=== PATIENT | male | born 1950 | race Caucasian/White ===

== ENCOUNTER 2016-11-07 09:20 | Emergency (ER) | payer OTHER ==
[~2016-11-07] VITALS: Ht 172.7 cm; Wt 65.8 kg
[~2016-11-07 09:20] MED LIST: ACETAMINOPHEN500 MG PO; CYMBALTA60 MG PO; ENDOCET 325 MG-1 TA1 PO; FLEXERIL10 MG PO; HYDRODIURIL 2525 MG PO; IBUPROFEN800 M1 PO; LIORESAL 10MG T10 MG PO; MEDROL DOSEPAK1 PAC PO; MEDROL4 MG PO; METFORMIN HCL500 M3 PO; METFORMIN HYDR500 MG PO; METHENAMINE HIPP1 GM PO; METOPROLOL TART50 MG PO; PERCOCET 325 MG1 TA2 PO; PERCOCET 5-3251 EACH PO; ROBAXIN500 M1 PO; SKELAXIN800 M1 PO; TRAZODONE HCL50 M1 PO; VICODIN 300 MG-1 TAB PO
--- NOTE | 2016-11-07 11:15 | ED NECK/BACK PAIN COMPLAINT ---
History of Present Illness General Chief Complaint: Low Back Pain/Injury Stated Complaint: fall yesterday/lbp Source: patient Exam Limitations: no limitations Vital Signs & Intake/Output Vital Signs & Intake/Output Vital Signs Date Time Temp Pulse Resp B/P Pulse O2 O2 Flow FiO2 Ox Delivery Rate 11/07 0954 98.7 74 20 127/84 95 Room Air Allergies Coded Allergies: Iodinated Contrast Media - Oral and (Severe, DIFFICULTY BREATHING, PRESSURE TO THE EYES 11/07/16) gabapentin (Severe, DIZZY, BLURRED VISION 11/07/16) naproxen (Severe, VOMIT BLOOD 11/07/16) tramadol (Severe, MUSCLE SPASMS 11/07/16) Reconcile Medications Acetaminophen 500 MG CAP 1-2 TAB PO Q6P PRN pain DULOXETINE HCL (Cymbalta) 60 MG CAPSULE.DR 1 CAP PO DAILY PAIN (Reported) Hydrochlorothiazide (Hydrodiuril 25 MG Tab) 25 MG TABLET 1 TAB PO DAILY BP ( Reported) Ibuprofen 800 MG TABLET 800 MG PO Q6H PRN PAIN/INFLAMMATION (Reported) Metaxalone (Skelaxin) 800 MG TABLET 1 TAB PO TID PRN muscle relaxant Metformin HCl 500 MG TABLET 500 MG PO DAILY DIABETES (Reported) Methenamine Hippurate 1 GRAM TABLET 1 TAB PO BID BLADDER (Reported) Methocarbamol (Robaxin) 500 MG TABLET 1 TAB PO TID PRN MUSCLE SPASMS Methylprednisolone. (Medrol) 4 MG TAB.DS.PK 1 DP PO AD back pain 6 on day 1 then reduce by one tablet daily until gone Metoprolol Tartrate 50 MG TABLET 1 TAB PO DAILY BP (Reported) Oxycodone HCl/Acetaminophen (Percocet 5-325 MG Tablet) 5 MG-325 MG TABLET 1 TAB PO Q6HR PRN pain Triage Note: TRIAGE: PT TO ER C/C L LOW BACK PAIN S/P FALL LAST NIGHT. STATES TRIPPED OVER DOG AND FELL DOWN APPROX 8 STEPS. TRIED IBUPROFEN 800 MG AND ROBAXIN WITH NO RELIEF. Triage Nurses Notes Reviewed? yes Onset: Abrupt Duration: day(s): (1) Timing: remote history Quality/Severity: moderate Location: lumbar spine Radiation: none Context: fall/near fall Method of Injury: fall Loss of Consciousness: no loss of consciousness HPI: Patient is a 66-year-old male presenting to the emergency Department chief complaint low back pain after falling down 4-5 steps last night. He reports that he slipped and fell and landed directly on his back and slid down 4-5 steps. No head injury. No loss of consciousness. Pain is achy throbbing intermittently sharp and stabbing. Denies radiation of the pain. Denies any urinary incontinence or retention. Has been taking ibuprofen without relief. Denies any neck pain. No weakness. Positive history of surgery approximately 10 years ago in the low back. He had a discectomy. Past History Travel History Traveled to [place] past 21 day No Medical History Any Pertinent Medical History? 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 No Review of Systems Review of Systems Constitutional: Reports: no symptoms. Comments Review of systems: See HPI, All other systems negative. Constitutional, no chills fever or weight loss HEENT: No visual changes no sore throat no congestion Cardiovascular: No chest pain ,palpitation , orthopnea or ankle swelling Skin, no jaundice no rashes Respiratory: No dyspnea cough sputum or hemoptysis GI: No nausea no vomiting : No dysuria No hematuria Muscle skeletal: no neck pain, Neurologic: No numbness no confusion Psych: No stress anxiety or depression,. Heme/endocrine: No bruising no bleeding no polyuria or polydipsia Immunology: No splenectomy or history of AIDS Physical Exam Physical Exam General Appearance: well developed/nourished, no apparent distress, alert, awake , comfortable Neck: normal inspection, supple, full range of motion, normal alignment Comments: Well-developed well-nourished person in no acute distress HEENT: Pupils equally round and reactive to light and accommodation. Nose is atraumatic. Neck: Supple, no lymphadenopathy, normal range of motion without pain or tenderness on a C-spine tenderness. Back: Palpation over L4, L5, alt [place] surgical scar noted. No ecchymosis or erythema or edema. Limited range of motion with forward flexion and back extension secondary to pain. Negative modified straight leg raise bilaterally. Cardiovascular: Regular rate and rhythms no murmurs rubs or gallops, normal JVP . Respiratory: Chest nontender. No respiratory distress.breath sounds clear to auscultation bilaterally Extremity: No edema, muscular strength is 5 out of 5 in all extremities well- seated. Independent Contractor strength is equal and symmetric bilaterally. Neuro: Alert oriented x3, motor sensory normal, patellar reflexes are 2+ bilaterally. Skin: No appreciable rash on exposed skin, skin is warm and dry. Psych: Mood and affect is normal, memory and judgment is normal. Progress Differential Diagnosis: cauda equina syn, herniated disc, myofascial strain, T/L spine injury Plan of Care: Orders Procedure Date/time Status XRY-LUMBOSACRAL SPINE 4 VIEWS 11/07 1114 Active Diagnostic Imaging: Viewed by Me: Radiology Read. Discussed w/RAD: Radiology Read. Radiology Impression: PATIENT: THANH CALLOWAY PRESENT AGE: 66 PATIENT ACCOUNT NO: [id number] : 52 LOCATION: [facility] ORDERING PHYSICIAN: JUAN CURTIS SERVICE DATE: 11/07/16 EXAM TYPE: RAD - XRY-LUMBOSACRAL SPINE 4 VIEWS EXAMINATION: XR LUMBOSACRAL SPINE CLINICAL INFORMATION: Pain after fall COMPARISON: None TECHNIQUE: 4 views of the lumbosacral spine. FINDINGS: Alignment of the lumbar vertebral bodies and posterior elements appears anatomic. Vertebral body heights are maintained. No acute fracture is seen. There is essentially complete loss of the L3-L4 disc space. There is moderate disc space narrowing at L4-L5 with vacuum disc phenomena. There is suspected sacralization of L5. Multilevel endplate osteophytes are present, most prominently in the lower lumbar spine. The sacroiliac joints are intact. IMPRESSION: No definite acute findings identified, though assessment of the lower lumbar spine is suboptimal due to degenerative change. Comments: 11/07/2016 11:31:07 AM arrival patient requesting pain medication. Given one by mouth Percocet for pain. He will go for x-ray to rule out fracture. 11/07/2016 11:52:11 AM patient informed of negative x-ray. He will take Percocet and Medrol Dosepak. He will follow up with PCP or return for worsening symptoms. Patient nontoxic. No signs of cauda equina. Departure Departure Time of Disposition: 1131 Disposition: HOME OR SELF CARE Condition: Stable Clinical Impression Primary Impression: Back pain Referrals: UNKNOWN (PCP/Family) Additional Instructions: Follow-up with your primary care physician call to make An appointment. Take Percocet and Medrol Dosepak as prescribed. Avoid heavy lifting 7 movements. Departure Forms: Customer Survey General Discharge Information Prescriptions: Current Visit Scripts Oxycodone HCl/Acetaminophen (Percocet 5-325 MG Tablet) 1 TAB PO Q6HR PRN pain #10 TAB Methylprednisolone. (Medrol) 1 DP PO AD #1 DP 6 on day 1 then reduce by one tablet daily until gone
[2016-11-07] MEDS ORDERED: PERCOCET 5-3251 EACH PO (11:33)
[2016-11-07] MEDS ORDERED: MEDROL4 M2 PO (11:33)
--- NOTE | 2016-11-07 11:44 | RADIOLOGY REPORT ---
EXAMINATION: XR LUMBOSACRAL SPINE CLINICAL INFORMATION: Pain after fall COMPARISON: None TECHNIQUE: 4 views of the lumbosacral spine. FINDINGS: Alignment of the lumbar vertebral bodies and posterior elements appears anatomic. Vertebral body heights are maintained. No acute fracture is seen. There is essentially complete loss of the L3-L4 disc space. There is moderate disc space narrowing at L4-L5 with vacuum disc phenomena. There is suspected sacralization of L5. Multilevel endplate osteophytes are present, most prominently in the lower lumbar spine. The sacroiliac joints are intact. IMPRESSION: No definite acute findings identified, though assessment of the lower lumbar spine is suboptimal due to degenerative change.
[2016-11-07 11:52] VITALS: BP 125/82
== END 2016-11-07 12:10 ==
LOC: ERH 09:20
DX: M54.5 Low back pain (principal)
CPT/HCPCS: 72110

== ENCOUNTER 2016-12-12 09:39 | Emergency (ER) | payer OTHER ==
[~2016-12-12] VITALS: Ht 172.7 cm; Wt 65.8 kg
[~2016-12-12 09:39] MED LIST changes: +MEDROL4 M2 PO
[2016-12-12 09:43] VITALS: BP 135/87
--- NOTE | 2016-12-12 09:55 | ED NECK/BACK PAIN COMPLAINT ---
History of Present Illness General Chief Complaint: Low Back Pain/Injury Stated Complaint: LOWER BACK PAIN Source: patient, old records Exam Limitations: no limitations Vital Signs & Intake/Output Vital Signs & Intake/Output Vital Signs Date Time Temp Pulse Resp B/P Pulse O2 O2 Flow FiO2 Ox Delivery Rate 12/12 0943 96.1 62 18 135/87 99 Room Air Allergies Coded Allergies: Iodinated Contrast Media - Oral and (Severe, DIFFICULTY BREATHING, PRESSURE TO THE EYES 11/07/16) gabapentin (Severe, DIZZY, BLURRED VISION 11/07/16) naproxen (Severe, VOMIT BLOOD 11/07/16) tramadol (Severe, MUSCLE SPASMS 11/07/16) Reconcile Medications Acetaminophen 500 MG CAP 1-2 TAB PO Q6P PRN pain DULOXETINE HCL (Cymbalta) 60 MG CAPSULE.DR 1 CAP PO DAILY PAIN (Reported) Hydrochlorothiazide (Hydrodiuril 25 MG Tab) 25 MG TABLET 1 TAB PO DAILY BP ( Reported) Ibuprofen 800 MG TABLET 800 MG PO Q6H PRN PAIN/INFLAMMATION (Reported) Metaxalone (Skelaxin) 800 MG TABLET 1 TAB PO TID PRN muscle relaxant Metformin HCl 500 MG TABLET 500 MG PO DAILY DIABETES (Reported) Methenamine Hippurate 1 GRAM TABLET 1 TAB PO BID BLADDER (Reported) Methocarbamol (Robaxin) 500 MG TABLET 1 TAB PO TID PRN MUSCLE SPASMS Methylprednisolone. (Medrol) 4 MG TAB.DS.PK 1 DP PO AD radiculopathy 6 on day 1 then reduce by one tablet daily until gone Methylprednisolone. (Medrol) 4 MG TAB.DS.PK 1 DP PO AD back pain 6 on day 1 then reduce by one tablet daily until gone Metoprolol Tartrate 50 MG TABLET 1 TAB PO DAILY BP (Reported) Oxycodone HCl/Acetaminophen (Percocet 5-325 MG Tablet) 5 MG-325 MG TABLET 1 TAB PO BID PRN pain Oxycodone HCl/Acetaminophen (Percocet 5-325 MG Tablet) 5 MG-325 MG TABLET 1 TAB PO Q6HR PRN pain Triage Note: 66 Y/O MALE C/O LOW BACK PAIN - HISTORY OF SAME. STATES HE TOOK IBUPROPHEN THIS AM WITH NO RELIEF, 800MG. ALSO TOOK 750MG ROBAXIN WITH NO RELIEF. Triage Nurses Notes Reviewed? yes Onset: Gradual Duration: day(s): (1), constant Timing: recent history Quality/Severity: moderate (ACHING) Location: paraspinous muscles Radiation: buttocks Context: lifting Method of Injury: LIFTING Modifying Factors: movement, pain medication, rest Associated Symptoms: denies HPI: 66-year-old male with history of 2 prior back surgeries chronic back pain presents to emergency room complaining of exacerbation of his chronic pain left worse than right since last night when he states he was worsening around and lifting his grandson. There is been no recent fall or trauma. He's been taking his Robaxin and ibuprofen without improvement. He states the pain radiates into his buttocks. He denies any abdominal pain urinary or bowel incontinence no fever no chills no abdominal pain or leg pain numbness tingling. he States when he has had this pain before that Percocet will help with his pain as does methylprednisolone (JOVANNY BLANCO) Past History Travel History Traveled to [place] past 21 day No Medical History Any Pertinent Medical History? 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 No (JOVANNY BLANCO) Review of Systems Review of Systems Constitutional: Reports: see HPI. All Other Systems: Reviewed and Negative Comments Review of systems: See HPI, All other systems negative. Constitutional, no chills no fever, no malaise HEENT: No visual changes no sore throat no congestion Cardiovascular: No chest pain , no palpitation , no orthopnea Skin, no rashes, no change in skin Respiratory: No dyspnea no cough no sputum GI: No nausea no vomiting, no diarrhea : No dysuria Muscle skeletal: No joint pain, , no back pain, no neck pain, Neurologic: No numbness no headache Psych: No stress Heme/endocrine: No bruising no bleeding Immunology: No lymphadenopathy (JOVANNY BLANCO) Physical Exam Physical Exam General Appearance: well developed/nourished, alert, awake, comfortable Neck: normal inspection, supple, full range of motion Comments: Well-developed well-nourished person in no acute distress HEENT: Normal EENT exam; PERRL, EOMI. HEAD is atraumatic. moist mucous membranes. Neck: Supple, normal range of motion Back: There is bilateral paralumbar muscle tenderness palpation of midline tenderness no ecchymosis or signs of trauma no CVA tenderness. Full range of motion Cardiovascular: Regular rate and rhythms no murmurs rubs Respiratory: No respiratory distress. Patient speaking in full complete sentences. Breath sounds clear to auscultation bilaterally: NO W/R/R Abdomen: Soft, nontender nondistended. Extremity: No edema, full range of motion of extremities, neg slr b/l Neuro: Alert oriented x3, motor sensory normal, Skin: No appreciable rash on exposed skin, skin is warm and dry. Psych: Mood and affect is normal, memory and judgment is normal. (JOVANNY BLANCO) Progress Differential Diagnosis: cauda equina syn, herniated disc, myofascial strain, pyelo/UTI, spinal cord inj, T/L spine injury, ureterolithiasis Plan of Care: pt has been seen numerous times int he past for the same, imaging at the time unremarkable. pt amb with steady gait. Patient clinically looks well. Patient has no evidence of radiculopathy. No urinary bowel dysfunction. No numbness in the genital area. Strength intact. Gross sensation intact. Patient resting comfortably and in no apparent distress. Pain is worse with range of motion. Pain is reproducible IN back with no bruising or ecchymosis noted. . Patient is to follow-up with primary care doctor. May need MRI of the lower back at some point time. No concerns for cauda equina at this point time. I considered this diagnosis but patient does not have any symptoms consistent with cauda equina. Patient has no secondary causes of back pain. No cardiac, pulmonary, or abdominal complaints. No abdominal pain on exam. Cardiac pulmonary exam within normal limits. No rashes, afebrile, denies recent weight loss, dizziness, lightheadedness (JOAVNNY BLANCO) Departure Departure Time of Disposition: 1001 Disposition: HOME OR SELF CARE Condition: Stable Clinical Impression Primary Impression: Lumbar radiculopathy Referrals: UNKNOWN (PCP/Family) Additional Instructions: follow up with your pmd next week. rest,interchange ice and heat. percocet for breakthrough pain- use caution as this will make you drowys-no driving or drinking alcohol while taking. medrol dose florina as directed. return to the ER with any concerns these prescriptions were sent to the [facility]. Departure Forms: Customer Survey General Discharge Information Prescriptions: Current Visit Scripts Oxycodone HCl/Acetaminophen (Percocet 5-325 MG Tablet) 1 TAB PO BID PRN pain #10 TAB Methylprednisolone. (Medrol) 1 DP PO AD #1 DP 6 on day 1 then reduce by one tablet daily until gone (JOVANNY BLANCO) PA/INSTRUCTIONAL PARAPROFESSIONAL Co-Sign Statement Statement: ED Attending supervision documentation- [] I saw and evaluated the patient. I have also reviewed all the pertinent lab results and diagnostic results. I agree with the findings and the plan of care as documented in the PA's/INSTRUCTIONAL PARAPROFESSIONAL's documentation. [X] I have reviewed the ED Record and agree with the PA's/INSTRUCTIONAL PARAPROFESSIONAL's documentation. [] Additions or exceptions (if any) to the PAs/INSTRUCTIONAL PARAPROFESSIONAL's note and plan are summarized below: [] (AMY JOLLY,SONAM)
[2016-12-12] MEDS ORDERED: MEDROL4 M2 PO (10:02)
[2016-12-12] MEDS ORDERED: PERCOCET 5-3251 EACH PO (10:02)
== END 2016-12-12 10:10 ==
LOC: ERH 09:39
DX: M54.16 Radiculopathy, lumbar region (principal)

== ENCOUNTER 2017-02-14 09:48 | Emergency (ER) | payer OTHER ==
[~2017-02-14] VITALS: Ht 172.7 cm; Wt 65.8 kg
[2017-02-14 10:00] VITALS: BP 120/79
--- NOTE | 2017-02-14 11:07 | ED NECK/BACK PAIN COMPLAINT ---
History of Present Illness General Chief Complaint: Low Back Pain/Injury Stated Complaint: LBP Source: patient Exam Limitations: no limitations Vital Signs & Intake/Output Vital Signs & Intake/Output Vital Signs Date Time Temp Pulse Resp B/P B/P Pulse O2 O2 Flow FiO2 Mean Ox Delivery Rate 02/14 1000 97.1 69 18 120/79 96 Room Air Room Air Allergies Coded Allergies: Iodinated Contrast Media - Oral and (Severe, DIFFICULTY BREATHING, PRESSURE TO THE EYES 11/07/16) gabapentin (Severe, DIZZY, BLURRED VISION 11/07/16) naproxen (Severe, VOMIT BLOOD 11/07/16) tramadol (Severe, MUSCLE SPASMS 11/07/16) Reconcile Medications Acetaminophen 500 MG CAP 1-2 TAB PO Q6P PRN pain DULOXETINE HCL (Cymbalta) 60 MG CAPSULE.DR 1 CAP PO DAILY PAIN (Reported) Hydrochlorothiazide (Hydrodiuril 25 MG Tab) 25 MG TABLET 1 TAB PO DAILY BP ( Reported) Ibuprofen 800 MG TABLET 800 MG PO Q6H PRN PAIN/INFLAMMATION (Reported) Metaxalone (Skelaxin) 800 MG TABLET 1 TAB PO TID PRN muscle relaxant Metformin HCl 500 MG TABLET 500 MG PO DAILY DIABETES (Reported) Methenamine Hippurate 1 GRAM TABLET 1 TAB PO BID BLADDER (Reported) Methocarbamol (Robaxin) 500 MG TABLET 1 TAB PO TID PRN MUSCLE SPASMS Methylprednisolone. (Medrol) 4 MG TAB.DS.PK 1 DP PO AD radiculopathy 6 on day 1 then reduce by one tablet daily until gone Methylprednisolone. (Medrol) 4 MG TAB.DS.PK 1 DP PO AD back pain 6 on day 1 then reduce by one tablet daily until gone Methylprednisolone. (Medrol) 4 MG TAB.DS.PK 1 DP PO AD BACK PAIN 6 on day 1 then reduce by one tablet daily until gone Metoprolol Tartrate 50 MG TABLET 1 TAB PO DAILY BP (Reported) Oxycodone HCl/Acetaminophen (Percocet 5-325 MG Tablet) 5 MG-325 MG TABLET 1 TAB PO BID PRN pain Oxycodone HCl/Acetaminophen (Percocet 5-325 MG Tablet) 5 MG-325 MG TABLET 1 TAB PO Q6HR PRN pain Oxycodone HCl/Acetaminophen (Percocet 5-325 MG Tablet) 5 MG-325 MG TABLET 1 TAB PO BID PRN PAIN Triage Note: TRIAGE: 66 Y/O MALE PRESENTS C/O 6-04/20 CHRONIC LOWER BACK PAIN "FOR A WHILE NOW. I'VE HAD 2 SURGERIES." OFFERED TYLENOL OR MOTRIN IN TRIAGE. PATIENT DECLINED, "I TOOK MOTRIN ALREADY." WHEN SKIDDER REQUESTED PATIENT TO REMOVE SWEATSHIRT FOR ACCURATE VITAL SIGNS MONITORING, PATIENT DECLINED STATING, "NO, I'M GOOD. YOU CAN JUST DO IT LIKE THIS OVER MY SWEATSHIRT." Triage Nurses Notes Reviewed? yes Onset: Gradual Duration: worse persistent since (SEVERAL MONTHS, YEARS) Timing: recent history Quality/Severity: moderate Location: lumbar spine, paraspinous muscles Radiation: none HPI: Patient is a 66-year-old male with history of chronic back pain presenting to the emergency department with chief complaint of worsening low back pain over the past several months. She denies any new injury. No numbness or tingling. Denies any lower extremity weakness. Pain is achy and throbbing worse with range of motion and palpation. Denies any urinary incontinence or retention. Has been taking Motrin [id number] with no relief. Requesting something stronger for pain. Denies any nausea vomiting fevers or chills chest test pain or shortness of breath. No abdominal pain. No change in urinary habits. No urinary frequency urgency dysuria or hematuria. (JUAN ELIAS) Past History Travel History Traveled to [place] past 21 day No Medical History Any Pertinent Medical History? 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 No (JUAN ELIAS) Review of Systems Review of Systems Constitutional: Reports: no symptoms. Comments Review of systems: See HPI, All other systems negative. Constitutional, no chills fever or weight loss HEENT: No visual changes no sore throat no congestion Cardiovascular: No chest pain ,palpitation Skin, no jaundice no rashes Respiratory: No dyspnea cough sputum or hemoptysis GI: No nausea no vomiting : No dysuria No hematuria Muscle skeletal: no neck pain, Neurologic: No numbness no confusion Psych: No stress anxiety or depression,. Heme/endocrine: No bruising no bleeding no polyuria or polydipsia Immunology: No splenectomy or history of AIDS (JUAN ELIAS) Physical Exam Physical Exam General Appearance: well developed/nourished, no apparent distress, alert, awake , comfortable Neck: normal inspection, supple, full range of motion, normal alignment Comments: Well-developed well-nourished person in no acute distress HEENT: Pupils equally round and reactive to light and accommodation. Nose is atraumatic. Neck: Supple, no lymphadenopathy, normal range of motion without pain or tenderness, no C-spine tenderness. Back: Tender to palpation over the lumbar paraspinal muscles bilaterally. No bony tenderness. Negative modified straight leg raise bilaterally. Cardiovascular: Regular rate and rhythms no murmurs rubs or gallops, normal JVP Respiratory: Chest nontender. No respiratory distress.breath sounds clear to auscultation bilaterally Abdomen: Soft, nontender nondistended, no appreciable organomegaly. Normal bowel sounds. No ascites Extremity: No edema, no calf tenderness to palpation, normal and equal pulses. Patellar reflexes are 2+ bilaterally. Muscular strength is 5 out of 5 in upper and lower extremities bilaterally. Neuro: Alert oriented x3, motor sensory normaL in the lower extremities bilaterally. Skin: No appreciable rash on exposed skin, skin is warm and dry. Psych: Mood and affect is normal, memory and judgment is normal. (JUAN ELIAS) Progress Differential Diagnosis: cauda equina syn, herniated disc, myofascial strain, pyelo/UTI, sciatica, thoracic outlet syn, T/L spine injury, ureterolithiasis Plan of Care: Patient likely looking for stronger pain medication. Neurologically intact. Patient will be treated symptomatically and follow up with PCP. Patient name may need MRI if symptoms persist. (JUAN ELIAS) Departure Departure Time of Disposition: 1113 Disposition: HOME OR SELF CARE Condition: Stable Clinical Impression Primary Impression: Back pain Qualifiers: Back pain location: low back pain Chronicity: unspecified Back pain laterality: left Sciatica presence: with sciatica Sciatica laterality: sciatica of left side Qualified Code: M54.42 - Lumbago with sciatica, left side Referrals: PATIENT HAS NO PRIMARY CARE DR (PCP/Family) Additional Instructions: Follow-up with your primary care physician call to make an appointment. Take Medrol Dosepak and Percocet as prescribed. Continue taking Robaxin as previously directed. Return for worsening symptoms. Avoid heavy lifting. Your prescriptions were sent to the [facility] pharmacy. Departure Forms: Customer Survey General Discharge Information Prescriptions: Current Visit Scripts Oxycodone HCl/Acetaminophen (Percocet 5-325 MG Tablet) 1 TAB PO BID PRN PAIN #10 TAB Methylprednisolone. (Medrol) 1 DP PO AD #1 DP 6 on day 1 then reduce by one tablet daily until gone (JUAN ELIAS) PA/PHERESIS NURSE Co-Sign Statement Statement: ED Attending supervision documentation- x I saw and evaluated the patient. I have also reviewed all the pertinent lab results and diagnostic results. I agree with the findings and the plan of care as documented in the PA's/PHERESIS NURSE's documentation. [] I have reviewed the ED Record and agree with the PA's/PHERESIS NURSE's documentation. [] Additions or exceptions (if any) to the PAs/PHERESIS NURSE's note and plan are summarized below: [] (ISABELA JOLLY,NOEL)
[2017-02-14] MEDS ORDERED: MEDROL4 M2 PO (11:15)
[2017-02-14] MEDS ORDERED: PERCOCET 5-3251 EACH PO (11:15)
== END 2017-02-14 11:30 ==
LOC: ERH 09:48
DX: M54.5 Low back pain (principal)

== ENCOUNTER 2017-04-11 09:30 | Emergency (ER) | payer OTHER, MEDICARE ==
[~2017-04-11] VITALS: Ht 172.7 cm; Wt 68.0 kg
[2017-04-11 09:39] VITALS: BP 131/84
[2017-04-11] MEDS ORDERED: MEDROL4 M2 PO (09:57)
--- NOTE | 2017-04-11 09:58 | ED NECK/BACK PAIN COMPLAINT ---
History of Present Illness General Chief Complaint: Low Back Pain/Injury Stated Complaint: BACK PAIN Source: patient, old records Exam Limitations: no limitations Vital Signs & Intake/Output Vital Signs & Intake/Output Vital Signs Date Time Temp Pulse Resp B/P B/P Pulse O2 O2 Flow FiO2 Mean Ox Delivery Rate 04/11 0939 97.9 66 18 131/84 100 Room Air Allergies Coded Allergies: Iodinated Contrast- Oral and IV Dye (Iodinated Contrast Media - Oral and) ( Severe, DIFFICULTY BREATHING, PRESSURE TO THE EYES 11/07/16) gabapentin (Severe, DIZZY, BLURRED VISION 11/07/16) naproxen (Severe, VOMIT BLOOD 11/07/16) tramadol (Severe, MUSCLE SPASMS 11/07/16) Reconcile Medications Acetaminophen 500 MG CAP 1-2 TAB PO Q6P PRN pain DULOXETINE HCL (Cymbalta) 60 MG CAPSULE.DR 1 CAP PO DAILY PAIN (Reported) Hydrochlorothiazide (Hydrodiuril 25 MG Tab) 25 MG TABLET 1 TAB PO DAILY BP ( Reported) Ibuprofen 800 MG TABLET 800 MG PO Q6H PRN PAIN/INFLAMMATION (Reported) Metaxalone (Skelaxin) 800 MG TABLET 1 TAB PO TID PRN muscle relaxant Metformin HCl 500 MG TABLET 500 MG PO DAILY DIABETES (Reported) Methenamine Hippurate 1 GRAM TABLET 1 TAB PO BID BLADDER (Reported) Methocarbamol (Robaxin) 500 MG TABLET 1 TAB PO TID PRN MUSCLE SPASMS Methylprednisolone. (Medrol) 4 MG TAB.DS.PK 1 DP PO AD radiculopathy 6 on day 1 then reduce by one tablet daily until gone Methylprednisolone. (Medrol) 4 MG TAB.DS.PK 1 DP PO AD BACK PAIN 6 on day 1 then reduce by one tablet daily until gone Methylprednisolone. (Medrol) 4 MG TAB.DS.PK 1 DP PO AD back pain 6 on day 1 then reduce by one tablet daily until gone Methylprednisolone. (Medrol) 4 MG TAB.DS.PK 1 DP PO AD BACK PAIN 6 on day 1 then reduce by one tablet daily until gone Metoprolol Tartrate 50 MG TABLET 1 TAB PO DAILY BP (Reported) Oxycodone HCl/Acetaminophen (Percocet 5-325 MG Tablet) 5 MG-325 MG TABLET 1 TAB PO BID PRN pain Oxycodone HCl/Acetaminophen (Percocet 5-325 MG Tablet) 5 MG-325 MG TABLET 1 TAB PO Q6HR PRN pain Oxycodone HCl/Acetaminophen (Percocet 5-325 MG Tablet) 5 MG-325 MG TABLET 1 TAB PO BID PRN PAIN Triage Note: PT TO ED FOR EXACERBATION OF CHRONIC BACK PAIN, PT REPORTING HE HAS "BACK PAIN ALL THE TIME BUT I TWISTED IT YESTERDAY" NO LOSS OF B/B, NO NUMBNESS OR TINGLING. Triage Nurses Notes Reviewed? yes HPI: Patient has chronic low back pain from her herniated disc. Patient states he has been helping his nephew built a green house and slipped while on a ladder 2 days ago and twisted his lower back. Since then he has been having increasing pain to his low back. There is no radiation of the pain. The pain increases with movement. There is no weakness or numbness. The pain is 10 out of 10. There is no incontinence of bowel or bladder. The pain is constant and is aching in nature. Past History Travel History Traveled to [place] past 21 day No Medical History Any Pertinent Medical History? 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 No Review of Systems Review of Systems Constitutional: Reports: no symptoms. Ears, Nose, Throat, Mouth: Reports: no symptoms. Respiratory: Reports: no symptoms. Cardiovascular: Reports: no symptoms. Musculoskeletal: Reports: see HPI, back pain. Neurological/Psychological: Reports: no symptoms. Physical Exam Physical Exam General Appearance: well developed/nourished, alert, awake, anxious, mild distress Head: atraumatic Eyes: Bilateral: PERRL, EOMI. Neck: normal inspection, supple, full range of motion, no midline tenderness Respiratory: normal breath sounds, chest non-tender, no respiratory distress, lungs clear Cardiovascular: regular rate/rhythm, normal peripheral pulses Gastrointestinal: normal bowel sounds, soft, non-tender, no organomegaly Back: muscle spasm, no vertebral tenderness Straight Leg Raising: Right: Negative. Left: Negative. 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 Patient has been to a few different emergency departments within the past few months for his back pain. Patient advised that we will not be able to give him narcotics for his pain. Patient states he has been taking Robaxin and Motrin. Patient prescribed a Medrol Dosepak. Patient states that has helped in the past. Departure Departure Disposition: HOME OR SELF CARE Condition: Stable Clinical Impression Primary Impression: Acute exacerbation of chronic low back pain Referrals: UNKNOWN (PCP/Family) Additional Instructions: use moist heat take medrol dose pack as prescribed follow up with your doctor return for any concerns Departure Forms: Customer Survey General Discharge Information Prescriptions: Current Visit Scripts Methylprednisolone. (Medrol) 1 DP PO AD #1 DP 6 on day 1 then reduce by one tablet daily until gone
== END 2017-04-11 09:59 ==
LOC: ERH 09:30
DX: M54.5 Low back pain (principal)